=== PATIENT | male | born 1965 | race Two or more races ===

== ENCOUNTER 2023-12-17 07:38 | Emergency (ER) | payer OTHER ==
[~2023-12-17] VITALS: Ht 175.3 cm; Wt 95.5 kg
[2023-12-17 07:40] VITALS: TEMP 98
[2023-12-17] MEDS: IBUPROFEN 600 MG TABLET PO ONE (08:01)
[2023-12-17] MEDS ORDERED: IBUP-1492 PO (09:58)
[2023-12-17 10:00] VITALS: BP 143/72; PULSE 72; RESP 16; O2SAT 99
== END 2023-12-17 10:18 | disposition home or self-care (01) ==
LOC: EMS 07:38
DX: S63.501A Unspecified sprain of right wrist, initial encounter (principal); I10 Essential (primary) hypertension; V09.9XXA Pedestrian injured in unspecified transport accident, initial encounter; Y93.89 Activity, other specified; Y92.89 Other specified places as the place of occurrence of the external cause; Y99.0 Civilian activity done for income or pay
CPT/HCPCS: 99283